=== PATIENT | female | born 1985 | race Caucasian/White ===

== ENCOUNTER → 2023-03-11 08:21 | Outpatient (CLI) | payer OTHER, SELFPAY ==
--- NOTE | ~2023-03-11 | US_ITS ---
Pelvic ultrasound. Clinical History: Hypertrophy of uterus Technique: Realtime transabdominal and transvaginal scanning of the pelvis was performed. Color flow Doppler and Doppler spectral analysis were performed. Findings: The uterus is anteverted, and measures 8.1 x 5.8 x 4.9. The endometrial stripe has a thick ness of 5 mm. Posterior, partially exophytic fibroid measures 2.8 x 2.8 x 2.0 cm. Anterior intramural fibroid measures 2.0 cm in maximum diameter. Posterior intramural fibroid measures 3.4 cm in maximum diameter. Several smaller fibroids are also present.. The right ovary measures 2.2 x 1.9 x 2.8 cm. No significant right ovarian or adnexal mass is seen. The left ovary measures 2.9 x 1.3 x 1.9 cm. No significant left ovarian or adnexal mass is seen. There is no evidence of free fluid in the cul de sac. Impression: Multiple uterine fibroids, as detailed above. Reviewed, dictated and finalized at location . Impression: Multiple uterine fibroids, as detailed above.
== END ==
PROVIDERS: PCP Advanced Practice Midwife; Visit Provider Advanced Practice Midwife
DX: N85.2 Hypertrophy of uterus (principal); D25.9 Leiomyoma of uterus, unspecified
CPT/HCPCS: 76856